=== PATIENT | female | born 1960 | race Caucasian/White ===

== ENCOUNTER 2016-10-24 18:53 | Emergency (ER) | payer BC ==
[~2016-10-24] VITALS: Ht 157.5 cm; Wt 60.8 kg
[~2016-10-24 18:53] MED LIST: CLON1TAB3 PO; HYDR25TA PO; MAGN400T3 PO; MECL25TA3 PO; PANT40TA3 PO; PARO20TA3 PO; PROM25TA10 PO; TRAZ150T49 PO
--- NOTE | 2016-10-24 19:03 | ED.ADGEN ---
Past History Past Medical History: Anxiety, Asthma, Diverticulitis Past Surgical History: Appendectomy, Hysterectomy, Tonsillectomy Smoking: Cigarettes, Less than 1pk/day Alcohol Use: None Drug Use: Marijuana Adult General Chief Complaint Chief Complaint Hypertension HPI HPI Patient is a 56 year old female who presents with in headache. She states that she noticed that her blood pressure was elevated about 2-3 days ago and saw her primary care physician this morning he started her on the Lisinpril/ Hydrocort thiazide. She states today after she ate lunch she woke up from her nap with her typical migraine headache. It is throbbing pressure sensation in the frontal area of her scalp. She was nauseated she took her sumatriptan and vomited up. She also complains about shakes and not feeling well. She denies any fevers chills, abdominal pain, neck stiffness, confusion, chest pain, shortness of breath. Review of Systems Review of Systems Constitutional: Denies fever or chills [] Eyes: Denies change in visual acuity, redness, or eye pain [] HENT: Denies nasal congestion or sore throat [] Respiratory: Denies cough or shortness of breath [] Cardiovascular: No additional information not addressed in HPI [] GI: Denies abdominal pain, vomiting, bloody stools or diarrhea, positive for nausea : Denies dysuria or hematuria [] Musculoskeletal: Denies back pain or joint pain [] Integument: Denies rash or skin lesions [] Neurologic: Denies focal weakness or sensory changes, positive for headache,[] Endocrine: Denies polyuria or polydipsia [] Current Medications Current Medications Current Medications Medications (Trade) Dose Ordered Sig/Marcelo Start Time Stop Time Status Last Admin Dose Admin Diphenhydramine HCl (Benadryl) 25 mg 1X ONCE 10/24/16 19:30 10/24/16 19:31 DC 10/24/16 20:03 25 MG Promethazine HCl (Phenergan) 25 mg STK-MED ONCE 10/24/16 19:31 10/24/16 19:32 DC Promethazine HCl 12.5 mg/Sodium Chloride 50.5 ml @ 101 mls/hr PRN Q6HRS PRN 10/24/16 19:30 10/24/16 20:03 101 MLS/HR Sodium Chloride 50 ml @ As Directed STK-MED ONCE 10/24/16 19:31 10/24/16 19:32 DC Allergies Allergies Allergies Coded Allergies Type Severity Reaction Last Updated Verified Penicillins Allergy Intermediate 10/24/16 No azithromycin Allergy Intermediate 10/24/16 Yes ciprofloxacin Allergy Intermediate 10/24/16 No codeine Allergy Intermediate 10/24/16 Yes tetracycline Allergy Intermediate 10/24/16 No Physical Exam Physical Exam Constitutional: Well developed, well nourished, no acute distress, non-toxic appearance. [] HENT: Normocephalic, atraumatic, bilateral external ears normal, oropharynx moist, no oral exudates, nose normal. [] Eyes: PERRLA, EOMI, conjunctiva normal, no discharge. [] Neck: Normal range of motion, no tenderness, supple, no stridor. [] Cardiovascular:Heart rate regular rhythm, no murmur [] Lungs & Thorax: Bilateral breath sounds clear to auscultation [] Abdomen: Bowel sounds normal, soft, no tenderness, no masses, no pulsatile masses. [] Skin: Warm, dry, no erythema, no rash. [] Back: No tenderness, no CVA tenderness. [] Extremities: No tenderness, no cyanosis, no clubbing, ROM intact, no edema. [] Neurologic: Alert and oriented X 3, normal motor function, normal sensory function, no focal deficits noted. [] Psychologic: Affect normal, judgement normal, mood normal. [] Current Patient Data Vital Signs Vital Signs Date Time Temp Pulse Resp B/P (MAP) Pulse Ox O2 Delivery O2 Flow Rate FiO2 10/24/16 20:00 62 18 163/96 (118) 94 Room Air 10/24/16 19:00 98.1 Lab Results Laboratory Tests Test 10/24/16 19:10 10/24/16 20:00 10/24/16 21:15 Urine Collection Type Unknown Urine Color Colorless Urine Clarity Clear Urine pH 7.0 Urine Specific [place] <=1.005 Urine Protein Neg (NEG-TRACE) Urine Glucose (UA) Neg mg/dL (NEG) Urine Ketones (Stick) Neg mg/dL (NEG) Urine Blood Small (NEG) Urine Nitrite Neg (NEG) Urine Bilirubin Neg (NEG) Urine Urobilinogen Dipstick 0.2 mg/dL (0.2 mg/dL) Urine Leukocyte Esterase Neg (NEG) Urine RBC 0 /HPF (0-2) Urine WBC Occ /HPF (0-4) Urine Squamous Epithelial Cells Few /LPF Urine Bacteria 0 /HPF (0-FEW) White Blood Count 11.3 x10^3/uL (4.0-11.0) H Red Blood Count 5.03 x10^6/uL (3.50-5.40) Hemoglobin 16.2 g/dL (12.0-15.5) H Hematocrit 47.1 % (36.0-47.0) H Mean Corpuscular Volume 94 fL (79-100) Mean Corpuscular Hemoglobin 32 pg (25-35) Mean Corpuscular Hemoglobin Concent 34 g/dL (31-37) Red Cell Distribution Width 13.9 % (11.5-14.5) Platelet Count 245 x10^3/uL (140-400) Neutrophils (%) (Auto) 75 % (31-73) H Lymphocytes (%) (Auto) 18 % (24-48) L Monocytes (%) (Auto) 5 % (0-9) Eosinophils (%) (Auto) 2 % (0-3) Basophils (%) (Auto) 1 % (0-3) Neutrophils # (Auto) 8.5 x10^3uL (1.8-7.7) H Lymphocytes # (Auto) 2.0 x10^3/uL (1.0-4.8) Monocytes # (Auto) 0.5 x10^3/uL (0.0-1.1) Eosinophils # (Auto) 0.2 x10^3/uL (0.0-0.7) Basophils # (Auto) 0.1 x10^3/uL (0.0-0.2) Sodium Level 142 mmol/L (136-145) Potassium Level 3.5 mmol/L (3.5-5.1) Chloride Level 103 mmol/L (98-107) Carbon Dioxide Level 30 mmol/L (21-32) Anion Gap 9 (6-14) Blood Urea Nitrogen 10 mg/dL (7-20) Creatinine 0.8 mg/dL (0.6-1.0) Estimated GFR (Cockcroft-Gault) 74.7 Glucose Level 97 mg/dL (70-99) Calcium Level 9.2 mg/dL (8.5-10.1) Total Bilirubin 0.3 mg/dL (0.2-1.0) Direct Bilirubin 0.1 mg/dL (0.0-0.2) Aspartate Amino Transferase (AST) 11 U/L (15-37) L Alanine Aminotransferase (ALT) 17 U/L (14-59) Alkaline Phosphatase 52 U/L (46-116) Creatine Kinase 80 U/L (26-192) 80 U/L (26-192) Creatine Kinase MB (Mass) 0.7 ng/mL (0.0-3.6) 0.5 ng/mL (0.0-3.6) Creatine Kinase MB Relative Index 0.9 % (0-4) 0.6 % (0-4) Troponin I Quantitative < 0.017 ng/mL (0-0.055) < 0.017 ng/mL (0-0.055) RN-Pev-U-Type Natriuretic Peptide 363 pg/mL (0-124) H Total Protein 7.5 g/dL (6.4-8.2) Albumin 3.9 g/dL (3.4-5.0) EKG EKG EKG shows sinus rhythm with rate [address] elevations, T-wave inversions V1 through V4, there is ST depressions in leads 2,3,aVF, right bundle branch morphology noted, normal axis, QTC 535 ms, as interpreted by me. EKG is similar with ST depressions noted on May 24, 2015 and and aVF, T- wave inversions are new on this EKG. Radiology/Procedures Radiology/Procedures One view chest x-ray does not show any focal consolidations, bony abnormalities , pneumothorax, as interpreted by me. Course & Med Decision Making Course & Med Decision Making Pertinent Labs and Imaging studies reviewed. (See chart for details) EKG does have some T-wave inversion in the precordial leads however her repeat troponins been negative and she doesn't have any chest pain. Her ST depressions in her inferior leads are they're from before. Patient does not want to stay therefore I just repeated a second troponin. Her headache and her blood pressure improved with Benadryl. She states being discharged home to follow-up with her primary care physician. Return precautions given. She is agreeable to the plan and being discharged in stable condition at this time. Final Impression Final Impression Hypertension Headache-resolved Problems: Dragon Disclaimer Dragon Disclaimer This electronic medical record was generated, in whole or in part, using a voice recognition dictation system. ANTWON MYERS MD Oct 24, 2016 19:03
[2016-10-24] MEDS ORDERED: flexeril PO (19:06)
[2016-10-24] MEDS ORDERED: CHOL500016 PO (19:06)
[2016-10-24] MEDS ORDERED: DEXL60CA2 PO (19:08)
[2016-10-24] MEDS ORDERED: ESCI5TAB8 PO (19:08)
[2016-10-24] MEDS ORDERED: [UNRECOGNIZED DRUG - OTHER] IM (19:09)
[2016-10-24] MEDS ORDERED: PROMETHAZINE 12.5 MG in IV NORMAL SALINE 50ML 50 ML IV PRN (19:30)
[2016-10-24] MEDS ORDERED: diphenhydrAMINE 50 MG/ML VIAL IVP ONE (19:30)
[2016-10-24] MEDS ORDERED: IV NORMAL SALINE 50ML 50 ML ONE (19:31)
[2016-10-24] MEDS ORDERED: PROMETHAZINE 25 MG/ML VIAL IV ONE (19:31)
[2016-10-24 20:00] VITALS: BP 163/96
[2016-10-24 20:28] LABS: BASO # 0.1 x10^3/uL (0.0-0.2); BASO % 1 % (0-3); EOS # 0.2 x10^3/uL (0.0-0.7); EOS % 2 % (0-3); HEMATOCRIT 47.1 % (36.0-47.0); HEMOGLOBIN 16.2 g/dL (12.0-15.5); LYMPH % 18 % (24-48); MEAN CORPUSCULAR HEMOGLOBIN 32 pg (25-35); MEAN CORPUSCULAR HGB CONC 34 g/dL (31-37); MEAN CORPUSCULAR VOLUME 94 fL (79-100); MONO # 0.5 x10^3/uL (0.0-1.1); MONO % 5 % (0-9); NEUT # 8.5 x10^3uL (1.8-7.7); NEUT % 75 % (31-73); PLATELET COUNT 245 x10^3/uL (140-400); RED BLOOD COUNT 5.03 x10^6/uL (3.50-5.40); RED CELL DISTRIBUTION WIDTH 13.9 % (11.5-14.5); WHITE BLOOD COUNT 11.3 x10^3/uL (4.0-11.0)
[2016-10-24 20:31] LABS: BILIRUBIN,URINE NEG (NEG); CLARITY,URINE CLEAR; COLOR,URINE COLORLESS; GLUCOSE,URINE NEG (NEG); NITRITE,URINE NEG (NEG); UROBILINOGEN,URINE 0.2 mg/dL (0.2 mg/dL)
[2016-10-24 20:32] LABS: BACTERIA,URINE 0 /HPF (0-FEW); RBC,URINE 0 /HPF (0-2); SQUAMOUS EPITHELIAL CELL,UR FEW /LPF; WBC,URINE OCC /HPF (0-4)
[2016-10-24 20:46] LABS: ALBUMIN 3.9 g/dL (3.4-5.0); CALCIUM 9.2 mg/dL (8.5-10.1); CREATININE 0.8 mg/dL (0.6-1.0); DIRECT BILIRUBIN 0.1 mg/dL (0.0-0.2); GFR 74.7; POTASSIUM 3.5 mmol/L (3.5-5.1); TOTAL BILIRUBIN 0.3 mg/dL (0.2-1.0); TOTAL PROTEIN 7.5 g/dL (6.4-8.2)
--- NOTE | 2016-10-25 06:35 | EKG ---
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
--- NOTE | 2016-10-25 07:48 | RAD ---
Indication: Hypertension. Time of exam 1920 hours. Correlation is made with prior chest from 06/04/2015. The heart size is normal. There is a calcified granuloma in the right lung base, stable. No infiltrates are detected. No effusion or pneumothorax is seen. Impression: No acute feature detected.
== END 2016-10-24 22:10 | disposition home or self-care (01) ==
LOC: ER 18:53
DX: I10 Essential (primary) hypertension (principal); J45.909 Unspecified asthma, uncomplicated; F17.210 Nicotine dependence, cigarettes, uncomplicated; F12.10 Cannabis abuse, uncomplicated; Z88.1 Allergy status to other antibiotic agents; Z88.6 Allergy status to analgesic agent; Z88.0 Allergy status to penicillin
CPT/HCPCS: 36415; 71010; 80048; 80076; 81001; 82553; 83880; 84443; 84484; 85027; 93005; 96365; 96375; 99285; J1200; J2550

== ENCOUNTER 2017-08-03 13:44 | Emergency (ER) | payer BC ==
[~2017-08-03] VITALS: Ht 157.5 cm; Wt 61.7 kg
[~2017-08-03 13:44] MED LIST changes: +CHOL500016 PO; +DEXL60CA2 PO; +LEXAPRO5 MG PO; +[UNRECOGNIZED DRUG - OTHER] IM; +flexeril PO
--- NOTE | 2017-08-03 14:10 | PHYS DOC ---
General Chief Complaint: CHEST PAIN Stated Complaint: CHEST PAIN Time Seen by MD: 13:49 Source: patient, RN/MD Exam Limitations: no limitations Problems: History of Present Illness Initial Comments 57-year-old female wheeled to the emergency department from PCP office at [facility] for dizziness shortness of breath and chest pain. Patient states that she's had the above symptoms since February last year unchanged and no one has been able to figure out what is going on. Chest pain is described as a tightness with perception of shortness of breath. Dizziness described not as any rotatory sensory motions but as unsteadiness and weakness. And despite the feeling of dyspnea patient's vital signs are stable with good O2 sats. Timing/Duration: other Severity: moderate Modifying Factors: worse with movement, improves with rest Associated Symptoms: cough, malaise, shortness of breath, other Allergies: Coded Allergies: Penicillins (Unverified Allergy, Intermediate, 08/03/17) azithromycin (Verified Allergy, Intermediate, 08/03/17) ciprofloxacin (Unverified Allergy, Intermediate, 08/03/17) codeine (Verified Allergy, Intermediate, 08/03/17) tetracycline (Unverified Allergy, Intermediate, 08/03/17) morphine (Verified Allergy, Unknown, 08/03/17) naproxen (Verified Allergy, Unknown, 08/03/17) Past Medical History Medical History: other (anxiety, asthma, bipolar disorder, cancer, depression, diverticulitis, hypertension, migraines, vertigo) Surgical History: other (appendectomy, hysterectomy, oophorectomy, tonsillectomy) Social History Smoker: cigarettes Drugs: marijuana Review of Systems Constitutional: denies chills, denies diaphoresis, denies fever, malaise Respiratory: see HPI Cardiovascular: see HPI, denies edema, denies palpitations, denies syncope Gastrointestinal: denies abdominal pain, denies diarrhea, denies nausea, denies vomiting Genitourinary: denies dysuria, denies frequency, denies hematuria Musculoskeletal: denies back pain, denies joint swelling, denies neck pain Psychiatric/Neurological: see HPI, denies headache, denies numbness Physical Exam General Appearance: no apparent distress (pale and very dehydrated) Eyes: bilateral eye normal inspection, bilateral eye PERRL, bilateral eye EOMI Ear, Nose, Throat: hearing grossly normal, normal ENT inspection (dry membranes ), normal pharynx, other (turbinates inflamed with clear discharge) Neck: non-tender, supple Respiratory: chest non-tender, normal breath sounds, no respiratory distress Cardiovascular: normal peripheral pulses, regular rate, rhythm, no edema Gastrointestinal: normal bowel sounds, non tender, soft Extremities: normal range of motion, non-tender, normal inspection Neurologic/Psychiatric: application processor II-XII nml as tested, no motor/sensory deficits, alert, oriented x 3, depressed affect (denies suicidal or homicidal ideation) Skin: pallor (poor turgor) Orders, Labs, Meds EKG: Normal sinus rhythm 68 bpm, no ST segment elevation interpreted by me. Overall reassuring workup, potassium 3.3 urine drug screen positive for cannabinoids 1628: Patient is feeling much better at this point after 1 L normal saline bolus and potassium 20 mEq by mouth. Her dyspnea and dizziness have resolved her color has improved and her membranes are now moist. She is sitting up awake and talking expressing interest in discharge home. I advised that no apparent emergent condition was noted and she can follow-up with her PCP, discussed signs and symptoms to monitor for as well as indications for urgent return to the department. Her questions were answered to her satisfaction and she left the department in improved condition. Departure Time of Disposition: 16:29 Disposition: 01 HOME, SELF-CARE Diagnosis: hypovolemia, hypokalemia, L serous otitis Condition: IMPROVED Patient Instructions: Hypokalemia-Brief, Serous Otitis Media Additional Instructions: Please review the patient education materials given by ED staff. Continue current medications. Aggressive hydration with Gatorade and water. [id number] Tylenol and cetirizine as needed. Prescription: Cozaar 25 mg daily quantity 7 Eat 1 banana daily to supplement potassium. Follow-up with your doctor in 1 week for recheck and to obtain refill for blood pressure medications. Return to ED with new or changing symptoms. ASIM MCALLISTER DO Aug 03, 2017 14:10
--- NOTE | 2017-08-03 14:10 | EKG ---
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
[2017-08-03] MEDS ORDERED: NITROGLYCERIN SUBLINGUAL 0.4 MG BOTTLE OF 25. SL PRN (14:15)
[2017-08-03 14:24] LABS: BASO # 0.1 x10^3/uL (0.0-0.2); BASO % 1 % (0-3); EOS # 0.1 x10^3/uL (0.0-0.7); EOS % 1 % (0-3); HEMATOCRIT 43.3 % (36.0-47.0); HEMOGLOBIN 14.7 g/dL (12.0-15.5); LYMPH # 2.3 x10^3/uL (1.0-4.8); LYMPH % 20 % (24-48); MEAN CORPUSCULAR HEMOGLOBIN 33 pg (25-35); MEAN CORPUSCULAR HGB CONC 34 g/dL (31-37); MEAN CORPUSCULAR VOLUME 96 fL (79-100); MONO # 0.6 x10^3/uL (0.0-1.1); MONO % 6 % (0-9); NEUT # 8.5 x10^3uL (1.8-7.7); NEUT % 73 % (31-73); PLATELET COUNT 255 x10^3/uL (140-400); RED BLOOD COUNT 4.49 x10^6/uL (3.50-5.40); WHITE BLOOD COUNT 11.6 x10^3/uL (4.0-11.0)
[2017-08-03 14:44] LABS: ALBUMIN 3.8 g/dL (3.4-5.0); ALBUMIN/GLOBULIN RATIO 1.2 (1.0-1.7); CALCIUM 8.5 mg/dL (8.5-10.1); CREATININE 0.6 mg/dL (0.6-1.0); GFR 103.8; POTASSIUM 3.3 mmol/L (3.5-5.1); TOTAL BILIRUBIN 0.4 mg/dL (0.2-1.0); TOTAL PROTEIN 7.1 g/dL (6.4-8.2)
--- NOTE | 2017-08-03 14:50 | RAD ---
PORTABLE CHEST 1V Clinical Indication: COUGH, CHEST PAIN Comparison: AP chest October 24, 2016. Findings: Stable calcified right hilar lymph nodes. The cardiomediastinal silhouette is normal. Stable calcified granuloma peripheral right lower lung. Lungs are clear. There is no pneumothorax. No pleural effusion is appreciated. No acute bone abnormality. IMPRESSION: No acute cardiopulmonary process. Electronically signed by: Phill Crowell MD (08/03/2017 2:47 PM) [id number]
[2017-08-03] MEDS ORDERED: ONDANSETRON ODT 4 MG TAB.RAPDIS PO ONE (15:00)
[2017-08-03] MEDS ORDERED: POTASSIUM CHLORIDE 20 MEQ TABLET.ER. PO ONE (15:00)
[2017-08-03] MEDS ORDERED: IV NORMAL SALINE 1,000ML 1,000 ML IV SCH (15:00)
[2017-08-03 15:43] LABS: AMPHETAMINE/METHAMPHETAMINE NEG (NEG); BARBITURATES NEG (NEG); BENZODIAZEPINES NEG (NEG); CANNABINOIDS POS (NEG); COCAINE NEG (NEG); METHADONE NEG (NEG); OPIATES NEG (NEG); PHENCYCLIDINE NEG (NEG)
[2017-08-03] MEDS ORDERED: ACETAMINOPHEN 500 MG TABLET PO ONE (15:45)
[2017-08-03 15:57] LABS: BACTERIA,URINE FEW /HPF (0-FEW); BILIRUBIN,URINE NEG (NEG); CLARITY,URINE CLEAR; COLOR,URINE YELLOW; GLUCOSE,URINE NEG (NEG); NITRITE,URINE NEG (NEG); RBC,URINE OCC /HPF (0-2); SQUAMOUS EPITHELIAL CELL,UR OCC /LPF; UROBILINOGEN,URINE 0.2 mg/dL (0.2 mg/dL)
[2017-08-03] MEDS ORDERED: LOSA25TA PO (16:33)
[2017-08-03 16:43] VITALS: BP 122/78
== END 2017-08-03 16:49 | disposition home or self-care (01) ==
LOC: ER 13:44
DX: E86.1 Hypovolemia (principal); E87.6 Hypokalemia; H65.92 Unspecified nonsuppurative otitis media, left ear; F41.9 Anxiety disorder, unspecified; J45.909 Unspecified asthma, uncomplicated; F31.9 Bipolar disorder, unspecified; I10 Essential (primary) hypertension; G43.909 Migraine, unspecified, not intractable, without status migrainosus; F17.210 Nicotine dependence, cigarettes, uncomplicated; F12.10 Cannabis abuse, uncomplicated; Z88.0 Allergy status to penicillin; Z88.5 Allergy status to narcotic agent; Z88.6 Allergy status to analgesic agent; Z88.1 Allergy status to other antibiotic agents
CPT/HCPCS: 36415; 71045; 80053; 80307; 81001; 82550; 83690; 83880; 84484; 85025; 85610; 85730; 93005; 96360; 99285; G0480; Q0162; G0479; J7030

== ENCOUNTER 2017-08-12 12:04 | Observation (INO) | payer BC ==
[~2017-08-12] VITALS: Ht 157.5 cm; Wt 61.3 kg
[~2017-08-12 12:04] MED LIST changes: +LOSA25TA PO
[2017-08-12] MEDS ORDERED: IV NORMAL SALINE 1,000ML 1,000 ML IV ONE (12:45)
[2017-08-12] MEDS ORDERED: ONDANSETRON PF 4 MG/2 ML VIAL. IV ONE (12:45)
[2017-08-12] MEDS ORDERED: IOHEXOL 300 MG/ML 75 ML VIAL. IV ONE (12:45)
[2017-08-12 13:06] LABS: BASO # 0.1 x10^3/uL (0.0-0.2); BASO % 1 % (0-3); EOS # 0.1 x10^3/uL (0.0-0.7); EOS % 1 % (0-3); HEMATOCRIT 44.5 % (36.0-47.0); HEMOGLOBIN 15.2 g/dL (12.0-15.5); LYMPH # 2.6 x10^3/uL (1.0-4.8); LYMPH % 25 % (24-48); MEAN CORPUSCULAR HEMOGLOBIN 33 pg (25-35); MEAN CORPUSCULAR HGB CONC 34 g/dL (31-37); MEAN CORPUSCULAR VOLUME 97 fL (79-100); MONO # 0.6 x10^3/uL (0.0-1.1); MONO % 6 % (0-9); NEUT # 7.1 x10^3uL (1.8-7.7); NEUT % 68 % (31-73); PLATELET COUNT 316 x10^3/uL (140-400); RED BLOOD COUNT 4.59 x10^6/uL (3.50-5.40); RED CELL DISTRIBUTION WIDTH 13.8 % (11.5-14.5); WHITE BLOOD COUNT 10.5 x10^3/uL (4.0-11.0)
--- NOTE | 2017-08-12 13:22 | RAD ---
CT abdomen and pelvis with contrast History: Left lower quadrant pain for 2 weeks into the groin Technique: After the administration of intravenous contrast, CT imaging was performed of the abdomen and pelvis. No oral contrast was given as per request. Multiplanar images are reviewed. Exposure: One or more of the following individualized dose reduction techniques were utilized for this examination: 1. Automated exposure control 2. Adjustment of the mA and/or kV according to patient size 3. Use of iterative reconstruction technique. Contrast: 75 cc Omnipaque 300 Comparison: June 04, 2015 Findings: Accurate evaluation of bowel is limited without oral contrast. There is sigmoid diverticulosis, likely mid to distal sigmoid wall thickening, adjacent mild strandy change of the fat. Small bowel is not dilated. There is no free air or free fluid. Appendix is not confidently identified if still present. There is no significant abnormality of the visualized lung bases. There is no new significant abnormality of the spleen, pancreas, adrenal glands. There are some splenic granulomas. Tiny hypodense lesion of the left lobe of the liver 0.3 cm is too small to otherwise accurately characterize although unchanged. Both kidneys enhance without hydronephrosis. Small punctate nonobstructive right renal calculus is not excluded on this postcontrast exam. Gallbladder is present without obvious intraluminal abnormality by CT. Urinary bladder has a normal configuration. There is scattered atherosclerotic calcification abdominal aorta and iliac arteries. Impression: 1. There is diverticulosis greatest of the sigmoid colon, likely wall thickening of the mid to distal sigmoid colon which may be seen with diverticulitis. There is no free air or free fluid. 2. Appendix is not clearly identified if still present. 3. Punctate nonobstructive right renal calculus is not excluded on this postcontrast exam. Electronically signed by: Meño Kulkarni MD (08/12/2017 1:19 PM) [id number]
[2017-08-12 13:32] LABS: ALBUMIN 3.8 g/dL (3.4-5.0); CALCIUM 9.4 mg/dL (8.5-10.1); CREATININE 0.8 mg/dL (0.6-1.0); GFR 74.5; TOTAL BILIRUBIN 0.2 mg/dL (0.2-1.0); TOTAL PROTEIN 7.7 g/dL (6.4-8.2)
[2017-08-12 13:33] LABS: POTASSIUM 4.2 mmol/L (3.5-5.1)
[2017-08-12] MEDS ORDERED: SMZ/TMP 800/160MG TABLET. PO ONE (14:15)
[2017-08-12] MEDS ORDERED: metroNIDAZOLE 500 MG TABLET PO ONE (14:15)
[2017-08-12] MEDS ORDERED: IV NORMAL SALINE 50ML 50 ML ONE (14:29)
[2017-08-12] MEDS ORDERED: PIPERACILLIN/TAZOBACTAM 3.375 GM VIAL IV ONE (14:29)
[2017-08-12] MEDS ORDERED: PIPERACILLIN/TAZOBACTAM 3.375 GM in IV NORMAL SALINE 50ML 50 ML IV ONE (14:45)
[2017-08-12] MEDS ORDERED: ONDANSETRON PF 4 MG/2 ML VIAL. IV PRN ×2 (15:15→17:30)
--- NOTE | 2017-08-12 15:18 | PHYS DOC ---
Past History Past Medical History: Anxiety, Asthma, Bipolar, Cancer, Depression, Diverticulitis, Hypertension, Migraines Past Surgical History: Appendectomy, Hysterectomy, Oophorectomy, Tonsillectomy Smoking: Cigarettes, Less than 1pk/day Alcohol Use: None Drug Use: Marijuana Adult General Chief Complaint Chief Complaint: ABDOMINAL PAIN HPI HPI Patient is a 57 year old F who presents with abdominal pain, nausea/vomiting and diarrhea over the past 2-3 days. Silvia does have a history of diverticulitis and feels that her symptoms are similar. She describes her abdominal pain as moderate, and generalized but worse in the left lower quadrant She was seen by her GI doctor today who referred her to the emergency room. He recommended that she have IV fluids, labs, CT scan and admission if she was found to have diverticulitis. She has no other associated symptoms at this time. She has no other exacerbating or alleviating factors. Review of Systems Review of Systems Constitutional: Denies fever or chills [] Eyes: Denies change in visual acuity, redness, or eye pain [] HENT: Denies nasal congestion or sore throat [] Respiratory: Denies cough or shortness of breath [] Cardiovascular: No additional information not addressed in HPI [] GI: He could've except history of present illness : Denies dysuria or hematuria [] Musculoskeletal: Denies back pain or joint pain [] Integument: Denies rash or skin lesions [] Neurologic: Denies headache, focal weakness or sensory changes [] Endocrine: Denies polyuria or polydipsia [] All other systems were reviewed and found to be within normal limits, except as documented in this note. Family History Family History No pertinent family medical history was reported Current Medications Current Medications Current Medications Medications (Trade) Dose Ordered Sig/Marcelo Start Time Stop Time Status Last Admin Dose Admin Fentanyl Citrate (Fentanyl 2ml Vial) 50 mcg 1X ONCE 08/12/17 12:45 08/12/17 12:46 DC 08/12/17 13:00 50 MCG Iohexol (Omnipaque 300 Mg/ml) 75 ml 1X ONCE 08/12/17 12:45 08/12/17 12:46 DC Metronidazole (Flagyl) 500 mg 1X ONCE 08/12/17 14:15 08/12/17 14:17 DC Ondansetron HCl (Zofran) 4 mg 1X ONCE 08/12/17 12:45 08/12/17 12:46 DC 08/12/17 13:01 4 MG Piperacillin Sod/ Tazobactam Sod (Zosyn) 3.375 gm STK-MED ONCE 08/12/17 14:29 08/12/17 14:30 DC Piperacillin Sod/ Tazobactam Sod 3.375 gm/Sodium Chloride 50 ml @ 100 mls/hr 1X ONCE 08/12/17 14:45 08/12/17 15:14 08/12/17 14:35 100 MLS/HR Sodium Chloride 50 ml @ As Directed STK-MED ONCE 08/12/17 14:29 08/12/17 14:30 DC Trimethoprim/ Sulfamethoxazole (Bactrim Ds) 1 tab 1X ONCE 08/12/17 14:15 08/12/17 14:17 DC Allergies Allergies Allergies Coded Allergies Type Severity Reaction Last Updated Verified Penicillins Allergy Intermediate 08/03/17 No azithromycin Allergy Intermediate 08/03/17 Yes ciprofloxacin Allergy Intermediate 08/03/17 No codeine Allergy Intermediate 08/03/17 Yes tetracycline Allergy Intermediate 08/03/17 No morphine Allergy Unknown 08/03/17 Yes naproxen Allergy Unknown 08/03/17 Yes Silvia states that her allergy to penicillin his rash but she has no idea when it was and is unsure if that was infected reaction. She states that she has taken amoxicillin in the past without difficulty. Physical Exam Physical Exam Constitutional: Well developed, well nourished, no acute distress, non-toxic appearance. [] HENT: Normocephalic, atraumatic, Eyes: EOMI, conjunctiva normal, no discharge. [] Neck: Normal range of motion, no tenderness, supple, no stridor. [] Cardiovascular:Heart rate regular rhythm, Lungs & Thorax: Bilateral breath sounds clear to auscultation [] Abdomen: Bowel sounds normal, soft, no masses, no pulsatile masses. [] Mild generalized tenderness with worse pain in the left lower quadrant Skin: Warm, dry, no erythema, no rash. [] Back: No tenderness, no CVA tenderness. [] Extremities: No tenderness, no cyanosis, no clubbing, ROM intact, no edema. [] Neurologic: Alert and oriented X 3, normal motor function, normal sensory function, no focal deficits noted. [] Psychologic: Affect normal, judgement normal, mood normal. [] Current Patient Data Vital Signs Vital Signs Date Time Temp Pulse Resp B/P (MAP) Pulse Ox O2 Delivery O2 Flow Rate FiO2 08/12/17 13:00 22 Room Air Lab Results Laboratory Tests Test 08/12/17 12:47 White Blood Count 10.5 x10^3/uL (4.0-11.0) Red Blood Count 4.59 x10^6/uL (3.50-5.40) Hemoglobin 15.2 g/dL (12.0-15.5) Hematocrit 44.5 % (36.0-47.0) Mean Corpuscular Volume 97 fL (79-100) Mean Corpuscular Hemoglobin 33 pg (25-35) Mean Corpuscular Hemoglobin Concent 34 g/dL (31-37) Red Cell Distribution Width 13.8 % (11.5-14.5) Platelet Count 316 x10^3/uL (140-400) Neutrophils (%) (Auto) 68 % (31-73) Lymphocytes (%) (Auto) 25 % (24-48) Monocytes (%) (Auto) 6 % (0-9) Eosinophils (%) (Auto) 1 % (0-3) Basophils (%) (Auto) 1 % (0-3) Neutrophils # (Auto) 7.1 x10^3uL (1.8-7.7) Lymphocytes # (Auto) 2.6 x10^3/uL (1.0-4.8) Monocytes # (Auto) 0.6 x10^3/uL (0.0-1.1) Eosinophils # (Auto) 0.1 x10^3/uL (0.0-0.7) Basophils # (Auto) 0.1 x10^3/uL (0.0-0.2) Sodium Level 138 mmol/L (136-145) Potassium Level 4.2 mmol/L (3.5-5.1) Chloride Level 101 mmol/L (98-107) Carbon Dioxide Level 24 mmol/L (21-32) Anion Gap 13 (6-14) Blood Urea Nitrogen 14 mg/dL (7-20) Creatinine 0.8 mg/dL (0.6-1.0) Estimated GFR (Cockcroft-Gault) 74.5 BUN/Creatinine Ratio 18 (6-20) Glucose Level 87 mg/dL (70-99) Lactic Acid Level 0.8 mmol/L (0.4-2.0) Calcium Level 9.4 mg/dL (8.5-10.1) Total Bilirubin 0.2 mg/dL (0.2-1.0) Aspartate Amino Transferase (AST) 16 U/L (15-37) Alanine Aminotransferase (ALT) 14 U/L (14-59) Alkaline Phosphatase 42 U/L (46-116) L Total Protein 7.7 g/dL (6.4-8.2) Albumin 3.8 g/dL (3.4-5.0) Albumin/Globulin Ratio 1.0 (1.0-1.7) Lipase 98 U/L (73-393) EKG EKG [] Radiology/Procedures Radiology/Procedures CT abdomen and pelvis with IV contrast Impressions: Findings: Accurate evaluation of bowel is limited without oral contrast. There is sigmoid diverticulosis, likely mid to distal sigmoid wall thickening, adjacent mild strandy change of the fat. Small bowel is not dilated. There is no free air or free fluid. Appendix is not confidently identified if still present. There is no significant abnormality of the visualized lung bases. There is no new significant abnormality of the spleen, pancreas, adrenal glands. There are some splenic granulomas. Tiny hypodense lesion of the left lobe of the liver 0.3 cm is too small to otherwise accurately characterize although unchanged. Both kidneys enhance without hydronephrosis. Small punctate nonobstructive right renal calculus is not excluded on this postcontrast exam. Gallbladder is present without obvious intraluminal abnormality by CT. Urinary bladder has a normal configuration. There is scattered atherosclerotic calcification abdominal aorta and iliac arteries. Impression: 1. There is diverticulosis greatest of the sigmoid colon, likely wall thickening of the mid to distal sigmoid colon which may be seen with diverticulitis. There is no free air or free fluid. 2. Appendix is not clearly identified if still present. 3. Punctate nonobstructive right renal calculus is not excluded on this postcontrast exam. Course & Med Decision Making Course & Med Decision Making Pertinent Labs and Imaging studies reviewed. (See chart for details) Dr. Del Rio, her GI doctor, was contacted by phone. Her case was reviewed including history, physical exam/vital signs, labs and images. Admission was advised for IV antibiotics, IV fluids and pain medication. Dragon Disclaimer Dragon Disclaimer This electronic medical record was generated, in whole or in part, using a voice recognition dictation system. Departure Departure: Impression: Primary Impression: Diverticulitis Disposition: ADMITTED INPATIENT Admitting Physician: Nils Clarke Condition: STABLE Referrals: CORNELL FUNES (PCP) LUIS DODGE MD Aug 12, 2017 15:18
[2017-08-12 15:54] VITALS: BP 178/79
[2017-08-12] MEDS ORDERED: ALBU0.63 NEB (16:34)
[2017-08-12] MEDS ORDERED: SULF1TAB23 PO (16:34)
[2017-08-12] MEDS ORDERED: ALBU8.5H8 INH (16:34)
[2017-08-12] MEDS ORDERED: BISA5TAB4 PO (16:34)
[2017-08-12] MEDS ORDERED: LINA145C PO (16:34)
[2017-08-12] MEDS ORDERED: LAMO25TA5 PO (16:34)
[2017-08-12] MEDS ORDERED: LOSA50TA2 PO (16:36)
[2017-08-12] MEDS ORDERED: CALCIUM CARBONATE 500 MG TAB.CHEW PO PRN (17:30)
[2017-08-12] MEDS ORDERED: PIP/TAZO PER PHARMACY MC PRN (17:30)
[2017-08-12] MEDS ORDERED: 0.9 % SODIUM CHLORIDE 10 ML DISP.SYRIN. IV PRN (17:30)
[2017-08-12] MEDS ORDERED: ACETAMINOPHEN 325 MG TABLET PO PRN (17:30)
[2017-08-12] MEDS ORDERED: PROCHLORPERAZINE 10 MG/2 ML VIAL. IV PRN (17:30)
[2017-08-12] MEDS ORDERED: METOCLOPRAMIDE HCL 10 MG/2 ML VIAL. IV PRN (17:30)
[2017-08-12] MEDS ORDERED: diphenhydrAMINE HCL 25 MG CAPSULE PO PRN (17:30)
[2017-08-12] MEDS ORDERED: ELECTROLYTE (NON-ICU) PROTOCOL MC PRN (17:30)
[2017-08-12] MEDS ORDERED: diphenhydrAMINE 50 MG/ML VIAL IV PRN (17:30)
--- NOTE | 2017-08-12 17:35 | PDOC1 ---
History of Present Illness Reason for Visit: Diverticulitis History of Present Illness Pt normally sees Dr. Del Rio. She reports 2 week hx of abd pain w/ intermittent n/ v. No fever. No bloody stools or diarrhea. No ill contacts. Pt has had appendix and uterus removed in past. Pt sent to hospital by Dr. Del Rio today. CT showed diverticulitis without abscess or perforation. Pt reports she has been dealing w/ frequent nausea and "fullness" for a long time. States Dr. Del Rio is working her up for this. Chief Complaint: ABDOMINAL PAIN Allergies: Coded Allergies: Penicillins (Unverified Allergy, Intermediate, 08/03/17) azithromycin (Verified Allergy, Intermediate, 08/03/17) ciprofloxacin (Unverified Allergy, Intermediate, 08/03/17) codeine (Verified Allergy, Intermediate, 08/03/17) tetracycline (Unverified Allergy, Intermediate, 08/03/17) morphine (Verified Allergy, Unknown, 08/03/17) naproxen (Verified Allergy, Unknown, 08/03/17) Past Medical History Cardiac: No pertinent hx Pulmonary: No pertinent hx GI: Diverticulosis Past Surgical History: Appendectomy, Hysterectomy Family History: Cancer (NEGATIVE FOR COLON CANCER) Past Social History Smoke: <1 pack per day Alcohol: rare Drugs: None Lives: with Family Review of Systems Review Of Systems Fourteen system , review of systems has been reviewed. See HPI for pertinent positives and negative responses, other ngo all other systems are negative, non pertinent or non contributory Allergies: Coded Allergies: Penicillins (Unverified Allergy, Intermediate, 08/03/17) azithromycin (Verified Allergy, Intermediate, 08/03/17) ciprofloxacin (Unverified Allergy, Intermediate, 08/03/17) codeine (Verified Allergy, Intermediate, 08/03/17) tetracycline (Unverified Allergy, Intermediate, 08/03/17) morphine (Verified Allergy, Unknown, 08/03/17) naproxen (Verified Allergy, Unknown, 08/03/17) Medications Current Medications Sodium Chloride 1,000 ml @ 1,000 mls/hr 1X ONCE IV Last administered on at 13:00; Start 08/12/17 at 12:45; Stop 08/12/17 at 13:45; Status DC Ondansetron HCl (Zofran) 4 mg 1X ONCE IV Last administered on 08/12/17at 13:01 ; Start 08/12/17 at 12:45; Stop 08/12/17 at 12:46; Status DC Fentanyl Citrate (Fentanyl 2ml Vial) 50 mcg 1X ONCE IV Last administered on at 13:00; Start 08/12/17 at 12:45; Stop 08/12/17 at 12:46; Status DC Iohexol (Omnipaque 300 Mg/ml) 75 ml 1X ONCE IV ; Start 08/12/17 at 12:45; Stop 08/12/17 at 12:46; Status DC Metronidazole (Flagyl) 500 mg 1X ONCE PO ; Start 08/12/17 at 14:15; Stop at 14:17; Status DC Trimethoprim/ Sulfamethoxazole (Bactrim Ds) 1 tab 1X ONCE PO ; Start 08/12/17 at 14:15; Stop 08/12/17 at 14:17; Status DC Piperacillin Sod/ Tazobactam Sod 3.375 gm/Sodium Chloride 50 ml @ 100 mls/hr 1X ONCE IV Last administered on 08/12/17at 14:35; Start 08/12/17 at 14:45; Stop 08/12/17 at 15:14; Status DC Sodium Chloride 50 ml @ As Directed STK-MED ONCE .ROUTE ; Start 08/12/17 at 14: 29; Stop 08/12/17 at 14:30; Status DC Piperacillin Sod/ Tazobactam Sod (Zosyn) 3.375 gm STK-MED ONCE IV ; Start at 14:29; Stop 08/12/17 at 14:30; Status DC Ondansetron HCl (Zofran) 4 mg PRN Q4HRS PRN IV NAUSEA/VOMITING; Start 08/12/17 at 15:15; Stop 08/13/17 at 15:14 Fentanyl Citrate (Fentanyl 2ml Vial) 50 mcg PRN Q2HR PRN IV PAIN; Start at 15:15; Stop 08/13/17 at 15:14 Active Scripts Active Reported Cozaar (Losartan Potassium) 50 Mg Tablet 50 Mg PO HS LAST DOSE GIVEN: DATE: TIME: NEXT DOSE DUE: DATE: TIME: Bactrim 400-80 Mg Tablet (Sulfamethoxazole/Trimethoprim) 1 Each Tablet 1 Tab PO BID LAST DOSE GIVEN: DATE: TIME: NEXT DOSE DUE: DATE: TIME: Lamictal (Lamotrigine) 25 Mg Tablet 0.5 Tab PO HS LAST DOSE GIVEN: DATE: TIME: NEXT DOSE DUE: DATE: TIME: Bisacodyl 5 Mg Tablet.dr 5 Mg PO PRN DAILY PRN LAST DOSE GIVEN: DATE: TIME: NEXT DOSE DUE: DATE: TIME: Linzess (Linaclotide) 145 Mcg Capsule 145 Mcg PO HS LAST DOSE GIVEN: DATE: TIME: NEXT DOSE DUE: DATE: TIME: Albuterol Sulfate Neb Soln (Albuterol Sulfate) 0.63 Mg/3 Ml Vial.neb 1 Vial NEB QID PRN LAST DOSE GIVEN: DATE: TIME: NEXT DOSE DUE: DATE: TIME: Proair Hfa Inhaler (Albuterol Sulfate) 8.5 Gm Hfa.aer.ad 1 Puff INH PRN Q6HRS PRN LAST DOSE GIVEN: DATE: TIME: NEXT DOSE DUE: DATE: TIME: Dexilant (Dexlansoprazole) 60 Mg Cap.dr.mp 60 Mg PO HS LAST DOSE GIVEN: DATE: TIME: NEXT DOSE DUE: DATE: TIME: Clonazepam 1 Mg Tablet 1.5 Tab PO HS LAST DOSE GIVEN: DATE: TIME: NEXT DOSE DUE: DATE: TIME: Exam Vital Signs Vital Signs Date Time Temp Pulse Resp B/P (MAP) Pulse Ox O2 Delivery O2 Flow Rate FiO2 08/12/17 16:57 Room Air 08/12/17 15:54 97.6 75 20 178/79 (112) 96 General Appearance: Alert, Oriented X3, Cooperative, No acute distress HEENT: Atraumatic, PERRLA, EOMI, Mucous membr. moist/pink, Other (Neck supple, full ROM, no JVD, no LAD no thyromegaly) Respiratory: Clear to auscultation, Normal air movement Heart: Regular rate, Normal S1, Normal S2, No murmurs Abdominal: Normal bowel sounds, Soft, No hepatospenomegaly, No masses, Other ( Mild TTP LLQ w/ no rebound or guarding) Extremities: No edema, Normal pulses, No tenderness/swelling Skin: No rashes, No breakdown Neuro: Normal speech, Strength at 5/5 X4 ext, Normal tone, Sensation intact, Cranial nerves 3-12 NL Psych/Mental Status: Mental status NL, Mood NL Assessment/Plan Assessment/Plan 1. Acute uncomplicated diverticulitis: IV abx (Zosyn), IV pain meds, IVF. Check labs in AM. 2. Tobaccoism: Nicotine patch. 3. DVT proph: Pt ambulating frequently, low risk. COURSE Allergies Coded Allergies Type Severity Reaction Last Updated Verified Penicillins Allergy Intermediate 08/03/17 No azithromycin Allergy Intermediate 08/03/17 Yes ciprofloxacin Allergy Intermediate 08/03/17 No codeine Allergy Intermediate 08/03/17 Yes tetracycline Allergy Intermediate 08/03/17 No morphine Allergy Unknown 08/03/17 Yes naproxen Allergy Unknown 08/03/17 Yes Laboratory Tests Test 08/12/17 12:47 White Blood Count 10.5 x10^3/uL (4.0-11.0) Red Blood Count 4.59 x10^6/uL (3.50-5.40) Hemoglobin 15.2 g/dL (12.0-15.5) Hematocrit 44.5 % (36.0-47.0) Mean Corpuscular Volume 97 fL (79-100) Mean Corpuscular Hemoglobin 33 pg (25-35) Mean Corpuscular Hemoglobin Concent 34 g/dL (31-37) Red Cell Distribution Width 13.8 % (11.5-14.5) Platelet Count 316 x10^3/uL (140-400) Neutrophils (%) (Auto) 68 % (31-73) Lymphocytes (%) (Auto) 25 % (24-48) Monocytes (%) (Auto) 6 % (0-9) Eosinophils (%) (Auto) 1 % (0-3) Basophils (%) (Auto) 1 % (0-3) Neutrophils # (Auto) 7.1 x10^3uL (1.8-7.7) Lymphocytes # (Auto) 2.6 x10^3/uL (1.0-4.8) Monocytes # (Auto) 0.6 x10^3/uL (0.0-1.1) Eosinophils # (Auto) 0.1 x10^3/uL (0.0-0.7) Basophils # (Auto) 0.1 x10^3/uL (0.0-0.2) Sodium Level 138 mmol/L (136-145) Potassium Level 4.2 mmol/L (3.5-5.1) Chloride Level 101 mmol/L (98-107) Carbon Dioxide Level 24 mmol/L (21-32) Anion Gap 13 (6-14) Blood Urea Nitrogen 14 mg/dL (7-20) Creatinine 0.8 mg/dL (0.6-1.0) Estimated GFR (Cockcroft-Gault) 74.5 BUN/Creatinine Ratio 18 (6-20) Glucose Level 87 mg/dL (70-99) Lactic Acid Level 0.8 mmol/L (0.4-2.0) Calcium Level 9.4 mg/dL (8.5-10.1) Total Bilirubin 0.2 mg/dL (0.2-1.0) Aspartate Amino Transf (AST/SGOT) 16 U/L (15-37) Alanine Aminotransferase (ALT/SGPT) 14 U/L (14-59) Alkaline Phosphatase 42 U/L (46-116) Total Protein 7.7 g/dL (6.4-8.2) Albumin 3.8 g/dL (3.4-5.0) Albumin/Globulin Ratio 1.0 (1.0-1.7) Lipase 98 U/L (73-393) Current Medications Medications (Trade) Dose Ordered Sig/Marcelo Route PRN Reason Start Time Stop Time Status Last Admin Dose Admin Sodium Chloride 1,000 ml @ 1,000 mls/hr 1X ONCE IV 08/12/17 12:45 08/12/17 13:45 DC 08/12/17 13:00 Ondansetron HCl (Zofran) 4 mg 1X ONCE IV 08/12/17 12:45 08/12/17 12:46 DC 08/12/17 13:01 Fentanyl Citrate (Fentanyl 2ml Vial) 50 mcg 1X ONCE IV 08/12/17 12:45 08/12/17 12:46 DC 08/12/17 13:00 Iohexol (Omnipaque 300 Mg/ml) 75 ml 1X ONCE IV 08/12/17 12:45 08/12/17 12:46 DC Metronidazole (Flagyl) 500 mg 1X ONCE PO 08/12/17 14:15 08/12/17 14:17 DC Trimethoprim/ Sulfamethoxazole (Bactrim Ds) 1 tab 1X ONCE PO 08/12/17 14:15 08/12/17 14:17 DC Piperacillin Sod/ Tazobactam Sod 3.375 gm/Sodium Chloride 50 ml @ 100 mls/hr 1X ONCE IV 08/12/17 14:45 08/12/17 15:14 DC 08/12/17 14:35 Sodium Chloride 50 ml @ As Directed STK-MED ONCE .ROUTE 08/12/17 14:29 08/12/17 14:30 DC Piperacillin Sod/ Tazobactam Sod (Zosyn) 3.375 gm STK-MED ONCE IV 08/12/17 14:29 08/12/17 14:30 DC Ondansetron HCl (Zofran) 4 mg PRN Q4HRS PRN IV NAUSEA/VOMITING 08/12/17 15:15 08/13/17 15:14 Fentanyl Citrate (Fentanyl 2ml Vial) 50 mcg PRN Q2HR PRN IV PAIN 08/12/17 15:15 08/13/17 15:14 Vital Signs Date Time Temp Pulse Resp B/P (MAP) Pulse Ox O2 Delivery O2 Flow Rate FiO2 08/12/17 16:57 Room Air 08/12/17 15:54 97.6 75 20 178/79 (112) 96 CT: CT abdomen and pelvis with contrast History: Left lower quadrant pain for 2 weeks into the groin Technique: After the administration of intravenous contrast, CT imaging was performed of the abdomen and pelvis. No oral contrast was given as per request. Multiplanar images are reviewed. Exposure: One or more of the following individualized dose reduction techniques were utilized for this examination: 1. Automated exposure control 2. Adjustment of the mA and/or kV according to patient size 3. Use of iterative reconstruction technique. Contrast: 75 cc Omnipaque 300 Comparison: June 04, 2015 Findings: Accurate evaluation of bowel is limited without oral contrast. There is sigmoid diverticulosis, likely mid to distal sigmoid wall thickening, adjacent mild strandy change of the fat. Small bowel is not dilated. There is no free air or free fluid. Appendix is not confidently identified if still present. There is no significant abnormality of the visualized lung bases. There is no new significant abnormality of the spleen, pancreas, adrenal glands. There are some splenic granulomas. Tiny hypodense lesion of the left lobe of the liver 0.3 cm is too small to otherwise accurately characterize although unchanged. Both kidneys enhance without hydronephrosis. Small punctate nonobstructive right renal calculus is not excluded on this postcontrast exam. Gallbladder is present without obvious intraluminal abnormality by CT. Urinary bladder has a normal configuration. There is scattered atherosclerotic calcification abdominal aorta and iliac arteries. Impression: 1. There is diverticulosis greatest of the sigmoid colon, likely wall thickening of the mid to distal sigmoid colon which may be seen with diverticulitis. There is no free air or free fluid. 2. Appendix is not clearly identified if still present. 3. Punctate nonobstructive right renal calculus is not excluded on this postcontrast exam. SARITA ALEXANDER MD Aug 12, 2017 17:35
[2017-08-12] MEDS ORDERED: PANT40TA5 PO (17:37)
[2017-08-12] MEDS ORDERED: NICO1PAT25 TP (17:37)
[2017-08-12] MEDS ORDERED: NON FORMULARY ITEM (Albuterol Sulfate (Albuterol Sulfate Neb Soln) 1 VIAL) NEB PRN (17:45)
[2017-08-12] MEDS ORDERED: ALBUTEROL SULFATE 8GM INHALER. INH PRN (17:45)
[2017-08-12] MEDS ORDERED: ALBUTEROL SULFATE 2.5 MG/3 ML NEBU. NEB PRN (18:00)
[2017-08-12 18:52] VITALS: BP 152/88
[2017-08-12] MEDS: POTASSIUM CL 20MEQ D5-0.45NACL 1,000 ML IV SCH (19:26)
[2017-08-12] MEDS: LACTOBACILLUS RHAMNOSUS GG 1 CAPSULE. PO SCH (20:49)
[2017-08-12] MEDS: NICOTINE 14MG PATCH. TD SCH (20:51)
[2017-08-12] MEDS ORDERED: clonazePAM 1 MG TABLET PO SCH (21:00)
[2017-08-12] MEDS ORDERED: lamoTRIgine 25 MG TABLET. PO SCH (21:00)
[2017-08-12] MEDS ORDERED: LOSARTAN 50 MG TABLET. PO SCH (21:00)
[2017-08-12] MEDS ORDERED: LINACLOTIDE 145 MCG CAPSULE. PO SCH (21:30)
[2017-08-12] MEDS: PIPERACILLIN/TAZOBACTAM 4.5 GM in IV NORMAL SALINE 50ML 50 ML IV SCH (22:15)
[2017-08-13 00:28] VITALS: BP 104/69
[2017-08-13 05:18] VITALS: BP 124/82
[2017-08-13] MEDS: PIPERACILLIN/TAZOBACTAM 4.5 GM in IV NORMAL SALINE 50ML 50 ML IV SCH (05:34)
[2017-08-13] MEDS: POTASSIUM CL 20MEQ D5-0.45NACL 1,000 ML IV SCH (06:13)
[2017-08-13 06:54] LABS: BASO # 0.1 x10^3/uL (0.0-0.2); BASO % 1 % (0-3); EOS # 0.2 x10^3/uL (0.0-0.7); EOS % 3 % (0-3); HEMATOCRIT 40.3 % (36.0-47.0); HEMOGLOBIN 13.7 g/dL (12.0-15.5); LYMPH # 2.5 x10^3/uL (1.0-4.8); LYMPH % 37 % (24-48); MEAN CORPUSCULAR HEMOGLOBIN 33 pg (25-35); MEAN CORPUSCULAR HGB CONC 34 g/dL (31-37); MEAN CORPUSCULAR VOLUME 97 fL (79-100); MONO # 0.6 x10^3/uL (0.0-1.1); MONO % 9 % (0-9); NEUT # 3.5 x10^3uL (1.8-7.7); NEUT % 51 % (31-73); PLATELET COUNT 264 x10^3/uL (140-400); RED BLOOD COUNT 4.16 x10^6/uL (3.50-5.40); RED CELL DISTRIBUTION WIDTH 13.9 % (11.5-14.5); WHITE BLOOD COUNT 6.8 x10^3/uL (4.0-11.0)
[2017-08-13 06:58] LABS: CALCIUM 8.7 mg/dL (8.5-10.1); CREATININE 0.7 mg/dL (0.6-1.0); GFR 86.9; POTASSIUM 4.1 mmol/L (3.5-5.1)
[2017-08-13] MEDS ORDERED: PANTOPRAZOLE 40 MG TABLET. PO SCH (07:30)
[2017-08-13] MEDS: LACTOBACILLUS RHAMNOSUS GG 1 CAPSULE. PO SCH (08:07)
[2017-08-13] MEDS: NICOTINE 14MG PATCH. TD SCH (08:09)
[2017-08-13 11:06] VITALS: BP 100/70
[2017-08-13] MEDS ORDERED: AMOX1TAB61 PO (14:19)
--- NOTE | 2017-08-13 14:22 | DISCH ---
DISCHARGE INSTRUCTIONS-DC Condition on Discharge Condition on Discharge: Stable Problems: Activity after Discharge Activity Instructions for Disc: Resume previous activity Diet after Discharge Diet after Discharge: [place] Checks after Discharge Checks after discharge: Check your Temp as needed Contacting the [facility] after DC Call your doctor for: If your condition worsens Follow-Up Follow up with: PCP in 2-3 days Follow up with: Dr. Del Rio next week SARITA ALEXANDER MD Aug 13, 2017 14:22
--- NOTE | 2017-08-13 14:25 | PDOC3 ---
Discharge Summary Discharge Summary Date of Admission Date of Admission: Aug 13, 2017 at 07:35 Admitting Diagnosis Diverticulitis w/o perforation or abscess Anxiety Tobaccoism Date of Discharge: Aug 13, 2017 Discharge Diagnosis Diverticulitis w/o perforation or abscess Anxiety Tobaccoism Laboratory Findings Laboratory Tests Test 08/12/17 12:47 08/13/17 06:24 White Blood Count 10.5 x10^3/uL (4.0-11.0) 6.8 x10^3/uL (4.0-11.0) Red Blood Count 4.59 x10^6/uL (3.50-5.40) 4.16 x10^6/uL (3.50-5.40) Hemoglobin 15.2 g/dL (12.0-15.5) 13.7 g/dL (12.0-15.5) Hematocrit 44.5 % (36.0-47.0) 40.3 % (36.0-47.0) Mean Corpuscular Volume 97 fL (79-100) 97 fL (79-100) Mean Corpuscular Hemoglobin 33 pg (25-35) 33 pg (25-35) Mean Corpuscular Hemoglobin Concent 34 g/dL (31-37) 34 g/dL (31-37) Red Cell Distribution Width 13.8 % (11.5-14.5) 13.9 % (11.5-14.5) Platelet Count 316 x10^3/uL (140-400) 264 x10^3/uL (140-400) Neutrophils (%) (Auto) 68 % (31-73) 51 % (31-73) Lymphocytes (%) (Auto) 25 % (24-48) 37 % (24-48) Monocytes (%) (Auto) 6 % (0-9) 9 % (0-9) Eosinophils (%) (Auto) 1 % (0-3) 3 % (0-3) Basophils (%) (Auto) 1 % (0-3) 1 % (0-3) Neutrophils # (Auto) 7.1 x10^3uL (1.8-7.7) 3.5 x10^3uL (1.8-7.7) Lymphocytes # (Auto) 2.6 x10^3/uL (1.0-4.8) 2.5 x10^3/uL (1.0-4.8) Monocytes # (Auto) 0.6 x10^3/uL (0.0-1.1) 0.6 x10^3/uL (0.0-1.1) Eosinophils # (Auto) 0.1 x10^3/uL (0.0-0.7) 0.2 x10^3/uL (0.0-0.7) Basophils # (Auto) 0.1 x10^3/uL (0.0-0.2) 0.1 x10^3/uL (0.0-0.2) Sodium Level 138 mmol/L (136-145) 137 mmol/L (136-145) Potassium Level 4.2 mmol/L (3.5-5.1) 4.1 mmol/L (3.5-5.1) Chloride Level 101 mmol/L (98-107) 103 mmol/L (98-107) Carbon Dioxide Level 24 mmol/L (21-32) 24 mmol/L (21-32) Anion Gap 13 (6-14) 10 (6-14) Blood Urea Nitrogen 14 mg/dL (7-20) 10 mg/dL (7-20) Creatinine 0.8 mg/dL (0.6-1.0) 0.7 mg/dL (0.6-1.0) Estimated GFR (Cockcroft-Gault) 74.5 86.9 BUN/Creatinine Ratio 18 (6-20) Glucose Level 87 mg/dL (70-99) 83 mg/dL (70-99) Lactic Acid Level 0.8 mmol/L (0.4-2.0) Calcium Level 9.4 mg/dL (8.5-10.1) 8.7 mg/dL (8.5-10.1) Total Bilirubin 0.2 mg/dL (0.2-1.0) Aspartate Amino Transf (AST/SGOT) 16 U/L (15-37) Alanine Aminotransferase (ALT/SGPT) 14 U/L (14-59) Alkaline Phosphatase 42 U/L (46-116) Total Protein 7.7 g/dL (6.4-8.2) Albumin 3.8 g/dL (3.4-5.0) Albumin/Globulin Ratio 1.0 (1.0-1.7) Lipase 98 U/L (73-393) Hospital Course Pt was sent to ER by Dr. Del Rio to r/o diverticulitis. Ct showed mild stranding and mild wall thickening in the left colon, no abscess or perf. WBC was normal , CMP normal. Pt admitted for clear liquid diet, IV pain medicine (fentanyl used as pt reports cardiac issues w/ codeine and morphine). Pt was treated w/ IV Zosyn as PCN allergy reported was not c/w a true allergy. Pt tolerated this well without evidence of allergic reaction. Pt did not have any vomiting, diarrhea, or difficult eating. The morning of 08/13, pt was found by security to be outside smoking despite having a nicotine patch on. She was asked not to do this, and pt v/u. I discussed the case w/ Dr. Del Rio, and he agreed that since her WBC was normal, she was tolerating PO intake, and she was afebrile without bloody diarrhea she could be discharged and treated w/ abx as an outpatient, closely following up with him next week. When I discussed this w/ pt, she became tearful and told me "just like I thought, no one will do anything for me. I should have never come to the hospital." I asked her what else was going on, and how long she had been ill. She said "I have been sick since February." I told her I doubted that she had had diverticulitis since February, and that perhaps something else was going on. She told me it started when she was diagnosed with HTN and given a BP med. Not long after that she says she was diagnosed with bipolar disorder, then vertigo, then treated w/ abx for sinus and ear infections. She says she just feels like she can't get better. I offered to have her stay and get more abx, a CT of her sinuses, and possibly transfer to another hospital w/ specialty care. Pt refused and said she just wanted to go home. She then went outside to smoke again. Pt is strongly encouraged to f/u with her PCP and Dr. Del Rio next week. We discussed pain medication, but pt has allergies to both NSAID's and opioids, so there was not one that we could safely prescribe. Condition at Discharge: Stable. Home Meds Active Scripts Amoxicillin/Potassium Clav (AUGMENTIN 875-125 TABLET) 1 Each Tablet, 1 TAB PO BID, #20 TAB Prov:SARITA ALEXANDER MD 08/13/17 Nicotine (NICODERM CQ 14mg) 1 Each Patch.td24, 1 PATCH TP DAILY, #14 PATCH Prov:SARITA ALEXANDER MD 08/12/17 Pantoprazole Sodium (PANTOPRAZOLE SODIUM) 40 Mg Tablet.dr, 1 TAB PO DAILY, #30 TAB 3 Refills Prov:SARITA ALEXANDER MD 08/12/17 Reported Medications Losartan Potassium (COZAAR) 50 Mg Tablet, 50 MG PO HS for HIGH BLOOD PRESSURE LAST DOSE GIVEN: DATE: TIME: NEXT DOSE DUE: DATE: TIME: 08/12/17 Lamotrigine (LAMICTAL) 25 Mg Tablet, 0.5 TAB PO HS for MOOD DISORDER LAST DOSE GIVEN: DATE: TIME: NEXT DOSE DUE: DATE: TIME: 08/12/17 Bisacodyl (BISACODYL) 5 Mg Tablet.dr, 5 MG PO PRN DAILY Y for CONSTIPATION LAST DOSE GIVEN: DATE: TIME: NEXT DOSE DUE: DATE: TIME: 08/12/17 Linaclotide (LINZESS) 145 Mcg Capsule, 145 MCG PO HS for CONSTIPATION LAST DOSE GIVEN: DATE: TIME: NEXT DOSE DUE: DATE: TIME: 08/12/17 Albuterol Sulfate (ALBUTEROL SULFATE NEB SOLN) 0.63 Mg/3 Ml Vial.neb, 1 VIAL NEB QID Y for SHORTNESS OF AIR LAST DOSE GIVEN: DATE: TIME: NEXT DOSE DUE: DATE: TIME: 08/12/17 Albuterol Sulfate (PROAIR HFA INHALER) 8.5 Gm Hfa.aer.ad, 1 PUFF INH PRN Q6HRS Y for SHORTNESS OF BREATH LAST DOSE GIVEN: DATE: TIME: NEXT DOSE DUE: DATE: TIME: 08/12/17 Clonazepam (CLONAZEPAM) 1 Mg Tablet, 1.5 TAB PO HS for ANXIETY LAST DOSE GIVEN: DATE: TIME: NEXT DOSE DUE: DATE: TIME: 06/04/15 Discontinued Reported Medications Sulfamethoxazole/Trimethoprim (BACTRIM 400-80 MG TABLET) 1 Each Tablet, 1 TAB PO BID for EAR AND SINUS INFECTIONS LAST DOSE GIVEN: DATE: TIME: NEXT DOSE DUE: DATE: TIME: 08/12/17 Dexlansoprazole (DEXILANT) 60 Mg Cap., 60 MG PO HS for NAUSEA AND VOMITING LAST DOSE GIVEN: DATE: TIME: NEXT DOSE DUE: DATE: TIME: 10/24/16 Inpatient Meds Current Medications Sodium Chloride 1,000 ml @ 1,000 mls/hr 1X ONCE IV Last administered on at 13:00; Start 08/12/17 at 12:45; Stop 08/12/17 at 13:45; Status DC Ondansetron HCl (Zofran) 4 mg 1X ONCE IV Last administered on 08/12/17at 13:01 ; Start 08/12/17 at 12:45; Stop 08/12/17 at 12:46; Status DC Fentanyl Citrate (Fentanyl 2ml Vial) 50 mcg 1X ONCE IV Last administered on at 13:00; Start 08/12/17 at 12:45; Stop 08/12/17 at 12:46; Status DC Iohexol (Omnipaque 300 Mg/ml) 75 ml 1X ONCE IV ; Start 08/12/17 at 12:45; Stop 08/12/17 at 12:46; Status DC Metronidazole (Flagyl) 500 mg 1X ONCE PO ; Start 08/12/17 at 14:15; Stop at 14:17; Status DC Trimethoprim/ Sulfamethoxazole (Bactrim Ds) 1 tab 1X ONCE PO ; Start 08/12/17 at 14:15; Stop 08/12/17 at 14:17; Status DC Piperacillin Sod/ Tazobactam Sod 3.375 gm/Sodium Chloride 50 ml @ 100 mls/hr 1X ONCE IV Last administered on 08/12/17at 14:35; Start 08/12/17 at 14:45; Stop 08/12/17 at 15:14; Status DC Sodium Chloride 50 ml @ As Directed STK-MED ONCE .ROUTE ; Start 08/12/17 at 14: 29; Stop 08/12/17 at 14:30; Status DC Piperacillin Sod/ Tazobactam Sod (Zosyn) 3.375 gm STK-MED ONCE IV ; Start at 14:29; Stop 08/12/17 at 14:30; Status DC Ondansetron HCl (Zofran) 4 mg PRN Q4HRS PRN IV NAUSEA/VOMITING; Start 08/12/17 at 15:15; Stop 08/13/17 at 15:10; Status DC Fentanyl Citrate (Fentanyl 2ml Vial) 50 mcg PRN Q2HR PRN IV PAIN; Start at 15:15; Stop 08/13/17 at 15:10; Status DC Sodium Chloride (Normal Saline Flush) 3 ml PRN DAILY PRN IV AFTER MEDS AND BLOOD DRAWS; Start 08/12/17 at 17:30; Stop 08/13/17 at 15:10; Status DC Potassium Chloride/Dextrose/ Sod Cl 1,000 ml @ 100 mls/hr Q10H IV Last administered on 08/13/17at 06:13; Start 08/12/17 at 17:30; Stop 08/13/17 at 15:10 ; Status DC Acetaminophen (Tylenol) 650 mg PRN Q6HRS PRN PO Headaches, Temp > 101.5F; Start 08/12/17 at 17:30; Stop 08/13/17 at 15:10; Status DC Calcium Carbonate/ Glycine (Tums) 500 mg PRN Q3HRS PRN PO HEARTBURN / GAS; Start 08/12/17 at 17:30; Stop 08/13/17 at 15:10; Status DC Info (Non-Icu Electrolyte Protocol) 1 ea CONT PRN PRN MC SEE COMMENTS; Start at 17:30; Stop 08/13/17 at 15:10; Status DC Prochlorperazine Edisylate (Compazine) 10 mg PRN Q4HRS PRN IV NAUSEA/VOMITING; Start 08/12/17 at 17:30; Stop 08/13/17 at 15:10; Status DC Metoclopramide HCl (Reglan Vial) 10 mg PRN Q6HRS PRN IV NAUSEA/VOMITING; Start 08/12/17 at 17:30; Stop 08/13/17 at 15:10; Status DC Ondansetron HCl (Zofran) 4 mg PRN Q8HRS PRN IV NAUSEA/VOMITING Last administered on 08/13/17at 06:13; Start 08/12/17 at 17:30; Stop 08/13/17 at 15:10 ; Status DC Diphenhydramine HCl (Benadryl) 25 mg PRN Q6HRS PRN PO SEE COMMENTS Last administered on 08/13/17at 05:54; Start 08/12/17 at 17:30; Stop 08/13/17 at 15:10 ; Status DC Diphenhydramine HCl (Benadryl) 25 mg PRN Q6HRS PRN IV SEE COMMENTS; Start 08/12 at 17:30; Stop 08/13/17 at 15:10; Status DC Fentanyl Citrate (Fentanyl 2ml Vial) 50 mcg PRN Q4HRS PRN IV PAIN Last administered on 08/13/17at 09:53; Start 08/12/17 at 17:30; Stop 08/13/17 at 15:10 ; Status DC Piperacillin Sod/ Tazobactam Sod (Zosyn Per Pharmacy) 1 each PRN DAILY PRN MC SEE COMMENTS; Start 08/12/17 at 17:30; Stop 08/13/17 at 15:10; Status DC Albuterol Sulfate (Ventolin Hfa) 1 puff PRN Q6HRS PRN INH SHORTNESS OF BREATH; Start 08/12/17 at 17:45; Stop 08/12/17 at 18:04; Status DC Clonazepam (KlonoPIN) 1.5 mg HS PO Last administered on 08/12/17at 20:51; Start 08/12/17 at 21:00; Stop 08/13/17 at 15:10; Status DC Lamotrigine (LaMICtal) 12.5 mg HS PO Last administered on 08/12/17at 20:50; Start 08/12/17 at 21:00; Stop 08/13/17 at 15:10; Status DC Losartan Potassium (Cozaar) 50 mg HS PO Last administered on 08/12/17at 20:51; Start 08/12/17 at 21:00; Stop 08/13/17 at 15:10; Status DC Non-Formulary Medication (Albuterol Sulfate (Albuterol Sulfate Neb Soln)) 1 vial QID PRN NEB SHORTNESS OF AIR; Start 08/12/17 at 17:45; Stop 08/12/17 at 17 :58; Status DC Albuterol Sulfate (Ventolin) 2.5 mg PRN Q6HRS PRN NEB SHORTNESS OF BREATH Last administered on 08/13/17at 00:45; Start 08/12/17 at 18:00; Stop 08/13/17 at 15:10 ; Status DC Piperacillin Sod/ Tazobactam Sod 4.5 gm/Sodium Chloride 50 ml @ 100 mls/hr Q8HRS IV Last administered on 08/13/17at 05:34; Start 08/12/17 at 22:00; Stop at 15:10; Status DC Lactobacillus Rhamnosus (Culturelle) 1 cap BID PO Last administered on at 08:07; Start 08/12/17 at 21:00; Stop 08/13/17 at 15:10; Status DC Nicotine (Nicoderm Cq 14mg) 1 patch DAILY TD Last administered on 08/13/17at 08: 09; Start 08/12/17 at 20:30; Stop 08/13/17 at 15:10; Status DC Pantoprazole Sodium (Protonix) 40 mg DAILYAC PO Last administered on 08/13/17at 08:07; Start 08/13/17 at 07:30; Stop 08/13/17 at 15:10; Status DC Active Scripts Active Augmentin 875-125 Tablet (Amoxicillin/Potassium Clav) 1 Each Tablet 1 Tab PO BID NICODERM CQ 14mg (Nicotine) 1 Each Patch.td24 1 Patch TP DAILY Pantoprazole Sodium 40 Mg Tablet. 1 Tab PO DAILY Reported Cozaar (Losartan Potassium) 50 Mg Tablet 50 Mg PO HS LAST DOSE GIVEN: DATE: TIME: NEXT DOSE DUE: DATE: TIME: Lamictal (Lamotrigine) 25 Mg Tablet 0.5 Tab PO HS LAST DOSE GIVEN: DATE: TIME: NEXT DOSE DUE: DATE: TIME: Bisacodyl 5 Mg Tablet.dr 5 Mg PO PRN DAILY PRN LAST DOSE GIVEN: DATE: TIME: NEXT DOSE DUE: DATE: TIME: Linzess (Linaclotide) 145 Mcg Capsule 145 Mcg PO HS LAST DOSE GIVEN: DATE: TIME: NEXT DOSE DUE: DATE: TIME: Albuterol Sulfate Neb Soln (Albuterol Sulfate) 0.63 Mg/3 Ml Vial.neb 1 Vial NEB QID PRN LAST DOSE GIVEN: DATE: TIME: NEXT DOSE DUE: DATE: TIME: Proair Hfa Inhaler (Albuterol Sulfate) 8.5 Gm Hfa.aer.ad 1 Puff INH PRN Q6HRS PRN LAST DOSE GIVEN: DATE: TIME: NEXT DOSE DUE: DATE: TIME: Clonazepam 1 Mg Tablet 1.5 Tab PO HS LAST DOSE GIVEN: DATE: TIME: NEXT DOSE DUE: DATE: TIME: Activity: as tolerated Diet: other (Full liquid, advance as tolerated) Follow-up Plan F/u with PCP in 2-3 days Discharge Instructions F/u with Dr. Del Rio next week SARITA ALEXANDER MD Aug 13, 2017 14:25
== END 2017-08-13 14:45 | disposition home or self-care (01) ==
LOC: ER 12:04 → 1 SOUTH 14:50 → ER 15:35 → INTOOBSV 08-13 07:35 → OBSVTOIN 08-13 07:35
PROVIDERS: ADMIT Family Medicine; ATTEND Family Medicine
DX: K57.32 Diverticulitis of large intestine without perforation or abscess without bleeding (principal); F41.9 Anxiety disorder, unspecified; I10 Essential (primary) hypertension; F31.9 Bipolar disorder, unspecified; F17.210 Nicotine dependence, cigarettes, uncomplicated; Z90.710 Acquired absence of both cervix and uterus; F12.90 Cannabis use, unspecified, uncomplicated
CPT/HCPCS: 36415; 74177; 80048; 80053; 83605; 83690; 85025; 96361; 96365; 96366; 96375; 96376; 99285; 99406; G0378; J2405; J2543; J3010; J7613; Q0163; G0379; J7030

== ENCOUNTER → 2017-11-08 | Outpatient (CLI) | payer BC ==
[~2017-11-08] MED LIST changes: +ALBU0.63 NEB; +ALBU8.5H8 INH; +AMOX1TAB61 PO; +BISA5TAB4 PO; -CLON1TAB3 PO; +CLON1TAB4 PO; +LAMO25TA5 PO; +LINA145C PO; +LOSA50TA2 PO; +NICO1PAT25 TP; +PANT40TA5 PO; +SULF1TAB23 PO
== END | disposition home or self-care (01) ==
LOC: LAB 10:04
PROVIDERS: ATTEND General Practice
DX: K21.9 Gastro-esophageal reflux disease without esophagitis (principal); R53.83 Other fatigue
CPT/HCPCS: 36415; 86900; 86901